=== PATIENT | male | born 1930 | race Caucasian/White ===

== ENCOUNTER 2018-09-20 14:13 | Outpatient (CLI) | payer MEDICARE, BC | END 2018-09-20 23:59 | disposition home or self-care (01) | LOC: RAD 14:13 | PROVIDERS: ATTEND Family Medicine | DX: R13.12 Dysphagia, oropharyngeal phase (principal); R49.0 Dysphonia; R47.1 Dysarthria and anarthria; I10 Essential (primary) hypertension; Z88.2 Allergy status to sulfonamides | CPT/HCPCS: 74230 ==

== ENCOUNTER 2020-01-15 07:31 | Day surgery (SDC) | payer MEDICARE, BC ==
[2020-01-15] VITALS (9 sets, daily range): BP systolic 124–174; BP diastolic 53–74
[~2020-01-15] VITALS: Ht 180.3 cm; Wt 77.5 kg
[2020-01-15] MEDS ORDERED: normal saline 1,000 ML IV SCH (08:05)
[2020-01-15] MEDS ORDERED: LORazepam 0.5 MG tablet PO PRN (08:05)
[2020-01-15] MEDS ORDERED: diphenhydrAMINE 25mg capsule PO PRN (08:05)
[2020-01-15] MEDS ORDERED: LIDOcaine/PRILOcaine 5gm cream TP ONE (08:10)
[2020-01-15] MEDS ORDERED: GABA-530 PO (08:18)
[2020-01-15] MEDS ORDERED: FINA5TAB11 PO (08:18)
[2020-01-15] MEDS ORDERED: FLO0.4C PO (08:18)
[2020-01-15] MEDS ORDERED: UBID100C45 PO (08:18)
[2020-01-15] MEDS ORDERED: TEMA30CA5 PO (08:18)
[2020-01-15] MEDS ORDERED: SILD100T PO (08:18)
[2020-01-15] MEDS ORDERED: VITA1TAB20 PO (08:18)
[2020-01-15] MEDS ORDERED: ASCO-139 PO (08:18)
[2020-01-15] MEDS ORDERED: CARB1TAB24 PO (08:18)
[2020-01-15] MEDS ORDERED: fentaNYL/PF 50MCG/1 ML 2ML syringe ONE (10:39)
[2020-01-15] MEDS ORDERED: midazolam 2 mg/2 ml injection ONE (10:40)
[2020-01-15] MEDS ORDERED: iohexol 350MG/ML 100ml bottle IV ONE (10:40)
[2020-01-15] MEDS ORDERED: nitroGLYCERIN-Tridil 50MG/D5W 250 ML IV ONE (10:40)
[2020-01-15] MEDS ORDERED: LIDOcaine 1% (10mg/ml)w/preservative injection 20ml MDV ONE (10:40)
[2020-01-15] MEDS ORDERED: verapamil 2.5 mg/ml inj IV ONE (10:40)
[2020-01-15] MEDS ORDERED: heparin 1,000unit/ml 10ml vial 10 ML ONE (10:41)
[2020-01-15] MEDS ORDERED: HYDROcodone/acetaminophen 5mg/325mg tablet PO PRN (13:00)
[2020-01-15] MEDS ORDERED: OXAZEpam 15mg capsule PO PRN (13:00)
[2020-01-15] MEDS ORDERED: ondansetron/PF 4mg/2ml inj IV PRN (13:00)
[2020-01-15] MEDS ORDERED: proCHLORperazine 10 MG/2 ml inj IV PRN (13:00)
[2020-01-15] MEDS ORDERED: HYDROcodone/acetaminophen 10/325mg tab PO PRN (13:00)
== END 2020-01-15 15:07 | disposition home or self-care (01) ==
LOC: SSTAY O 07:31
PROVIDERS: ATTEND Student in an Organized Health Care Education/Training Program
DX: R94.39 Abnormal result of other cardiovascular function study (principal); I25.118 Atherosclerotic heart disease of native coronary artery with other forms of angina pectoris; G20 Parkinson's disease; I10 Essential (primary) hypertension; I65.23 Occlusion and stenosis of bilateral carotid arteries; E78.5 Hyperlipidemia, unspecified; J44.9 Chronic obstructive pulmonary disease, unspecified; G47.33 Obstructive sleep apnea (adult) (pediatric); I48.91 Unspecified atrial fibrillation; Z79.899 Other long term (current) drug therapy; Z87.891 Personal history of nicotine dependence; Z88.2 Allergy status to sulfonamides; Z95.5 Presence of coronary angioplasty implant and graft; Z98.890 Other specified postprocedural states; Z72.89 Other problems related to lifestyle
CPT/HCPCS: 93005; 93458; 99152; 99153; C1769; C1894; J1644; J2001; J2250; J3010; J7030; Q0163; Q9967; A4620; A5120; J3490